=== PATIENT | female | born 1980 | race Caucasian/White ===

== ENCOUNTER → 2020-12-20 | Outpatient (CLI) | payer OTHER ==
[2020-12-20 12:29] LABS: INR 0.9 (<1.2); Partial Thromboplastin Time 22.6 sec (22.0-30.0); Prothrombin Time 9.6 sec (9.0-12.0)
[2020-12-20 20:02] LABS: HCT 42.1 % (37.2-46.3); HGB 13.3 g/dL (12.0-15.0); MCHC 31.6 g/dL (32.0-37.0); Mean Platelet Volume 10.1 fL (9.5-12.2); Platelet Count 370 X 10*3/uL (140-440); RBC 4.43 X 10*6/uL (4.10-5.20); RDW 12.8 % (11.5-14.5); WBC 6.21 X 10*3/uL (4.50-10.00)
[2020-12-21 02:12] LABS: % Iron Saturation 22.96 (12.00-45.00); African American GFR (CKD) 125.6 (60.0-200.0); Albumin 4.6 g/dL (3.80-4.90); Albumin/Globulin Ratio 1.7 (1.60-3.17); Anion Gap 8.9 mmol/L (4.00-12.00); BUN/Creat Ratio 15.71 Ratio (12.00-20.00); Calcium 9.4 mg/dL (8.7-10.3); Carbon Dioxide 27.1 mmol/L (21.6-31.8); Chol/HDL Ratio 2.41; Globulin 2.7 g/dL (1.6-3.3); LDL Cholesterol,Calculated 127.4 mg/dL (0.0-131.0); Magnesium 2.3 mg/dL (1.5-2.4); Non-African American GFR(CKD) 108.4 (60.0-200.0); Phosphorus 3.8 mg/dL (2.4-5.1); Potassium 4.5 mmol/L (3.5-5.5); Total Bilirubin 0.4 mg/dL (0.3-1.2); Total Protein 7.3 g/dL (6.2-8.2); VLDL Calculation 10.6 mg/dL (5.00-40.00)
[2020-12-21 02:21] LABS: Ferritin 41.5 ng/mL (10.0-291.0); Folate, Serum 9.1 ng/mL
[2020-12-21 13:18] LABS: Zinc, Serum 90 ug/dL (60-130)
[2020-12-22 06:23] LABS: Vitamin A 56 ug/dL (38-106)
[2020-12-22 12:25] LABS: Vit B1(Thiamine) 58 ug/L (38-122)
[2020-12-25 18:24] LABS: Selenium 104 mcg/L (63-160)
== END | disposition home or self-care (01) ==
LOC: LABWHC1 11:08
PROVIDERS: ATTEND Surgery Plastic and Reconstructive Surgery
DX: I11.9 Hypertensive heart disease without heart failure (principal); E66.01 Morbid (severe) obesity due to excess calories; E89.1 Postprocedural hypoinsulinemia; D50.8 Other iron deficiency anemias; E44.0 Moderate protein-calorie malnutrition; E55.9 Vitamin D deficiency, unspecified; K74.1 Hepatic sclerosis; N19 Unspecified kidney failure; K50.90 Crohn's disease, unspecified, without complications; Z98.84 Bariatric surgery status
CPT/HCPCS: 36415; 80053; 80061; 82306; 82525; 82607; 82728; 82746; 83036; 83540; 83550; 83735; 83970; 84100; 84134; 84255; 84425; 84443; 84590; 84630; 85027; 85610; 85730; 93005

== ENCOUNTER 2020-12-25 09:15 | Day surgery (SDC) | payer OTHER ==
[2020-12-21 10:27] VITALS: BMI 20.1
--- NOTE | 2020-12-25 08:47 | P.GSHP ---
History of Present Illness H&P Date: 12/25/20 CHIEF COMPLAINT: Cholecystitis HISTORY OF PRESENT ILLNESS: The patient is a 40-year-old female who presents with history of epigastric including right upper quadrant abdominal pain. She underwent diagnostic studies for her gallbladder. Separately her clinical picture was consistent with cholecystitis. Now she presents for surgical intervention. PAST MEDICAL HISTORY: Please see list PAST SURGICAL HISTORY: Please see list MEDICATIONS: Please see list ALLERGIES: Please see list SOCIAL HISTORY: Please see list FAMILY HISTORY: Please see list REVIEW OF ORGAN SYSTEMS: CONSTITUTIONAL: No reports of fevers or chills. HEENT: Denies any troubles with the vision or hearing. ENDOCRINE: No reports of hypothyroidism. No diabetes. RESPIRATORY: No recent pneumonias. CARDIOVASCULAR: Denies chest pain or palpitations GI: No blood in stools or constipation. MUSCULOSKELETAL: Has occasional joint pain including back pain. NEURO: No seizure disorders or headaches. No recent stroke. PSYCH: No depression or suicidal ideation. GENITOURINARY: No active blood in urine. No urinary hesitancy. HEMATOLOGIC: No personal or family history of DVTs or pulmonary emboli. SKIN: No skin cancer. PHYSICAL EXAM: VITAL SIGNS: Afebrile vital signs stable GENERAL: Well-developed pleasant in no acute distress. HEENT: No scleral icterus. Extraocular movements grossly intact. Moist buccal mucosa. NECK: Supple without lymphadenopathy. CHEST: Unlabored respirations. Equal bilateral excursions. CARDIOVASCULAR: Regular rate regular rhythm rhythm. Distal 2+ pulses. ABDOMEN: Soft, nondistended. Tender along the epigastrium and right upper quadrant. MUSCULOSKELETAL: No clubbing, cyanosis, or edema. NEURO: Cranial nerves II to XII within normal limits. No focal or lateralizing signs. PSYCH: Alert and oriented to person, place and time. SKIN: Well-perfused good skin turgor. ASSESSMENT: 1. Epigastric and right upper quadrant abdominal pain 2. Chronic cholecystitis PLAN: 1. Will need a robotic cholecystectomy possible open. Benefits and risks were described. 2. Heparin for DVT prophylaxis 5000 units. 3. Antibiotic prophylaxis. Past Medical History Past Medical History: GERD/Reflux Additional Past Medical History / Comment(s): STATES DIARRHEA/CONSTIPATION, NAUSEA, HEARTBURN WITH HER GALL BLADDER PROBLEMS. History of Any Multi-Drug Resistant Organisms: None Reported Past Surgical History: No Surgical Hx Reported Additional Past Anesthesia/Blood Transfusion Reaction / Comment(s): NO ANESTHESIA HX Past Psychological History: ADD/ADHD, Anxiety Smoking Status: Former smoker Past Alcohol Use History: None Reported Additional Past Alcohol Use History / Comment(s): QUIT SMOKING 5 YEARS AGO, SMOKED OCCASIONALLY Past Drug Use History: Marijuana Additional Drug Use History / Comment(s): CURRENT MARIJUANA GUMMIES FOR NAUSEA AT NIGHT - Past Family History Mother Family Medical History: No Reported History Medications and Allergies Home Medications Medication Instructions Recorded Confirmed Type Calcium Carb/Magnesium Hydrox 1 each PO DIRECTED PRN 12/21/20 12/21/20 H istory [Rolaids Chew tab] Calcium Carbonate [Tums] 500 mg PO DIRECTED PRN 12/21/20 12/21/20 History Dextroamphetamine/Amphetamine 30 mg PO BID 12/21/20 12/21/20 History [Adderall] Eszopiclone [Lunesta] 2 mg PO HS PRN 12/21/20 12/21/20 History Famotidine [Pepcid] 20 mg PO DIRECTED PRN 12/21/20 12/21/20 History L.acidoph,Paracasei, B.lactis 1 each PO DAILY 12/21/20 12/21/20 History [Probiotic] Mag Hydrox/Aluminum Hyd/Simeth 1 dose PO DIRECTED PRN 12/21/20 12/21/20 History [Mylanta Maximum Strength Liq] Allergies Allergy/AdvReac Type Severity Reaction Status Date / Time No Known Allergies Allergy Verified 12/21/20 10:00
[~2020-12-25 09:15] MED LIST: ACETAMINOPHEN TAB 500 MG TAB PO PRN; DEXAMETHASONE SOD PHOSPHATE 4 MG/ML 1 ML VIAL IV ONE; GABAPENTIN 300 MG CAP PO PRN; HEPARIN SODIUM,PORCINE/PF 5,000 UNIT/0.5 ML SYRINGE SQ PRN; INDOCYANINE GREEN 25 MG VIAL IV PRN; LACTATED RINGERS 1,000 ML IV SCH; MELOXICAM 7.5 MG TAB PO PRN; MIDAZOLAM 2 MG/2 ML VIAL IV PRN; ONDANSETRON 4 MG/2 ML VIAL IVP ONE; SCOPOLAMINE 1.5MG/72HR PATCH TRANSDERM ONE; SCOPOLAMINE 1.5MG/72HR PATCH TRANSDERM PRN
[2020-12-25 09:38] VITALS: RESP 16
[2020-12-25] MEDS ORDERED: PROPOFOL 10 MG/ML 20 ML VIAL IV ONE (10:28)
[2020-12-25] MEDS ORDERED: SUCCINYLCHOLINE CHLORIDE 100 MG/5 ML SYR IV ONE (10:28)
[2020-12-25] MEDS ORDERED: ROCURONIUM 10 MG/ML (5 ML VIAL) IV ONE (10:28)
[2020-12-25] MEDS ORDERED: NEOSTIGMINE 1 MG/ML 10 ML VIAL ONE (10:28)
[2020-12-25] MEDS ORDERED: LIDOCAINE 1% INJ 10MG/ML (20 ML MDV) ONE (10:28)
[2020-12-25] MEDS ORDERED: KETOROLAC 15 MG/ML 1 ML VIAL ONE (10:28)
[2020-12-25] MEDS ORDERED: MIDAZOLAM 2 MG/2 ML VIAL ONE (10:28)
[2020-12-25] MEDS ORDERED: fentaNYL (PF) 50 MCG/ML 2 ML AMP ONE (10:28)
[2020-12-25] MEDS ORDERED: INDOCYANINE GREEN 25 MG VIAL IV ONE (10:28)
[2020-12-25] MEDS ORDERED: GLYCOPYRROLATE 0.2 MG/ML 2 ML VIAL ONE (10:28)
[2020-12-25] MEDS ORDERED: LIDOCAINE 1%-EPI 1:100,000 20 ML VIAL SQ ONE ×2 (10:29→10:57)
[2020-12-25] MEDS ORDERED: KETOROLAC 15 MG/ML 1 ML VIAL IVP PRN (11:40)
--- NOTE | 2020-12-25 11:41 | P.OP ---
Date of Procedure: 12/25/20 Description of Procedure: SURGEON: SHANNON ALLEN MD PREOPERATIVE DIAGNOSES: 1. Chronic cholecystitis POSTOPERATIVE DIAGNOSES: 1. Symptomatic gallstone 2. Right upper quadrant abdominal pain 3. Chronic cholecystitis 4. Peritoneal adhesions, right upper quadrant OPERATION: Robotic-assisted da Britton Xi laparoscopic assistance of adhesions Robotic-assisted da Britton Xi laparoscopic cholecystectomy, multiport with FIREFLY ESTIMATED BLOOD LOSS: 5 mL. SPECIMENS REMOVED: Gallbladder. COMPLICATIONS: None. OPERATIVE FINDINGS: 1. Moderate scarring over entire gallbladder with peritoneal adhesions, pericholecystic with features of chronic cholecystitis INDICATIONS: The patient is a 40-year-old female who presents with symptomatic gallstones. Robotic assisted laparoscopic approach was described. Benefits and risks of the procedure including but not limited to bleeding, infection, injury to the biliary tree was described. Informed consent was obtained. DESCRIPTION OF PROCEDURE: Patient was brought to the operating room, placed in supine position. After general induction, the abdomen had been prepped and draped in standard sterile fashion. The robotic da Britton XI system was primed. After a timeout protocol was performed, the patient had been prepped and draped in standard sterile fashion. The patient was injected with indocyanine green. A 5 mm 0 degrees laparoscopic trocar entry was performed along the left upper quadrant. The abdomen insufflated to 15 mmHg pressure which was tolerated well. Diagnostic laparoscopy demonstrated no injury to bowel viscera or mesentery. The liver surface was unremarkable. Next, two 8 mm robotic ports were placed along the right upper abdomen. The camera 8-mm port was maintained along the epigastrium. Another 8 mm port was placed along the left upper abdominal wall after exchanging the 5 mm port. Please note that the ports were placed at least 10 to 15 cm away from the target anatomy of the gallbladder. The robot was docked along the left lateral abdomen. The patient was repositioned in reverse Trendelenburg position. Using a grasper for arm 3, a grasper for arm 4, including hook cautery for arm 1, the robotic system was docked and primed as described. Instruments were interchanged by the printer floor covering assistant including hook cautery, Bovie cautery and clip appliers. I had sat at the console. The gallbladder was scarred with peritoneal adhesions. Lysis of adhesions was performed to free the gallbladder from the surrounding tissues. Next attention was brought to the infundibulum and cystic structures. The infundibulum and cystic duct were dissected free from surrounding tissues. The cystic duct was isolated. FIREFLY was used to identify the cystic artery and cystic structures. A critical view of safety was obtained. Large PLASTIC clips were used throughout the entire case. Using a clip drawer in dobby loom, 2 clips were placed at the junction of the infundibulum and cystic duct. The cystic duct was divided between clips. Next, the cystic artery was similarly clipped and cauterized. Electro-Bovie cautery was used to remove the gallbladder from the hepatic fossa. Hemostasis was checked and found to be adequate. The robot was undocked. I re-scrubbed into the case. Using a 10 mm Endo Catch bag via the left upper quadrant incision, the specimen was removed from the abdominal cavity. All pneumoperitoneum instruments were evacuated from the abdominal cavity. The incisions were reapproximated using 4-0 Monocryl in an interrupted subcuticular fashion. Fascial defects were less than 8 mm in size. Please note along the trocar sites, local anesthetic was placed as a field block prior to insertion of all instruments. Liquid glue was applied to the skin. At the end of the procedure needle, sponge, and instrument count had been verified correct by the surgical asst. The patient was transferred to postanesthesia care unit in stable condition. Intraoperative films were shared with the patient's family. Plan - Discharge Summary Discharge Rx Participant: Yes New Discharge Prescriptions: New Ibuprofen [Motrin] 600 mg PO Q8HR PRN #30 tab PRN Reason: Pain Simethicone 40 mg/0.6 ml Drops [Mylicon Drops] 40 mg PO Q6HR PRN #30 ml PRN Reason: Abdominal Distention Acetaminophen [Tylenol] 650 mg PO Q4H #30 tab Continue L.acidoph,Paracasei, B.lactis [Probiotic] 1 each PO DAILY Mag Hydrox/Aluminum Hyd/Simeth [Mylanta Maximum Strength Liq] 1 dose PO DIRECTED PRN PRN Reason: UPSET STOMACH Dextroamphetamine/Amphetamine [Adderall] 30 mg PO BID Eszopiclone [Lunesta] 2 mg PO HS PRN PRN Reason: Insomnia Calcium Carbonate [Tums] 500 mg PO DIRECTED PRN PRN Reason: Heartburn Famotidine [Pepcid] 20 mg PO DIRECTED PRN PRN Reason: Heartburn Calcium Carb/Magnesium Hydrox [Rolaids Chew tab] 1 each PO DIRECTED PRN PRN Reason: UPSET STOMACH Discharge Medication List Calcium Carb/Magnesium Hydrox [Rolaids Chew tab] 1 each PO DIRECTED PRN 12/21/20 [History] Calcium Carbonate [Tums] 500 mg PO DIRECTED PRN 12/21/20 [History] Dextroamphetamine/Amphetamine [Adderall] 30 mg PO BID 12/21/20 [History] Eszopiclone [Lunesta] 2 mg PO HS PRN 12/21/20 [History] Famotidine [Pepcid] 20 mg PO DIRECTED PRN 12/21/20 [History] L.acidoph,Paracasei, B.lactis [Probiotic] 1 each PO DAILY 12/21/20 [History] Mag Hydrox/Aluminum Hyd/Simeth [Mylanta Maximum Strength Liq] 1 dose PO DIRECTED PRN 12/21/20 [History] Acetaminophen [Tylenol] 650 mg PO Q4H #30 tab 12/25/20 [Rx] Ibuprofen [Motrin] 600 mg PO Q8HR PRN #30 tab 12/25/20 [Rx] Simethicone 40 mg/0.6 ml Drops [Mylicon Drops] 40 mg PO Q6HR PRN #30 ml 12/25/20 [Rx] Follow up Appointment(s)/Referral(s): Shannon Allen MD [STAFF PHYSICIAN] - 12/28/20 Patient Instructions/Handouts: Laparoscopic Cholecystectomy (DC), Low Fat Diet (DC) Activity/Diet/Wound Care/Special Instructions: Recommend low-fat diet for the next 2 days. No lifting over 10 pounds in 2 weeks until Jan 08. September shower. No bath tub soaks for two weeks until Jan 08. Diet as tolerated. Use Tylenol, simethicone and ibuprofen or Aleve scheduled for the next 24-48 hours for best pain relief. Use ice along incisions for today to prevent swelling. Discharge Disposition: HOME SELF-CARE
[2020-12-25] MEDS: HYDROmorphone 0.5 MG/0.5 ML SYRINGE IVP PRN ×4 (11:44→12:11)
[2020-12-25 11:46] VITALS: TEMP 97
[2020-12-25] MEDS: MEPERIDINE 50 MG/ML SYRINGE IVP ONE ×2 (12:24→12:29)
[2020-12-25 13:29] VITALS: BP 112/66; PULSE 87
== END 2020-12-25 13:42 | disposition home or self-care (01) ==
LOC: OR 09:15
PROVIDERS: ATTEND Surgery Plastic and Reconstructive Surgery
DX: K80.20 Calculus of gallbladder without cholecystitis without obstruction (principal); N73.6 Female pelvic peritoneal adhesions (postinfective); K21.9 Gastro-esophageal reflux disease without esophagitis; F41.9 Anxiety disorder, unspecified; F90.9 Attention-deficit hyperactivity disorder, unspecified type
CPT/HCPCS: 47562; 49999; 81025; 88304; J2250; J1100; J2710; J2175; J0690; J2405; J2001; J3010; J1885; J0330; J2704; J1170; J1644